=== PATIENT | female | born 1960 | race Caucasian/White ===

== ENCOUNTER 2017-04-25 23:39 | Observation (INO) | payer BC ==
--- NOTE | 2017-04-26 00:30 | EDM.PDOC ---
ED HPI GENERAL MEDICAL PROBLEM - General Chief Complaint: General Stated Complaint: LOW BLOOD SUGAR Time Seen by Provider: 04/26/17 00:15 - History of Present Illness INITIAL COMMENTS - FREE TEXT/NARRATIVE: HISTORY AND PHYSICAL: History of present illness: Patient 56-year-old white female history of diabetes presents with concern of generalized weakness with nausea on arrival here patient states she feels somewhat better but is noted have intermittent bigeminy without associated chest pain shortness of breath or nausea or vomiting. Review of systems: As per history of present illness and below otherwise all systems reviewed and negative. Past medical history: As per history of present illness and as reviewed below otherwise noncontributory. Surgical history: As per history of present illness and as reviewed below otherwise noncontributory. Social history: No reported history of drug or alcohol abuse. Family history: As per history of present illness and as reviewed below otherwise noncontributory. Physical exam: HEENT: Atraumatic, normocephalic, pupils reactive, negative for conjunctival pallor or scleral icterus, mucous membranes moist, throat clear, neck supple, nontender, trachea midline. Lungs: Clear to auscultation, breath sounds equal bilaterally, chest nontender. Heart: S1S2, irregular, negative for clicks, rubs, or JVD. Abdomen: Soft, nondistended, nontender. Negative for masses or hepatosplenomegaly. Negative for costovertebral tenderness. Pelvis: Stable nontender. Genitourinary: Deferred. Rectal: Deferred. Extremities: Atraumatic, negative for cords or calf pain. Neurovascular unremarkable. Neuro: Awake, alert, oriented. Cranial nerves II through XII unremarkable. Cerebellum unremarkable. Motor and sensory unremarkable throughout. Exam nonfocal. Diagnostics: CBC CMP PT/INR troponin chest x-ray EKG Therapeutics: IV O2 monitor Impression: #1 intermittent bigeminy #2 diabetes #3 loss weakness with associated Definitive disposition and diagnosis as appropriate pending reevaluation and review of above. - Related Data Allergies Allergy/AdvReac Type Severity Reaction Status Date / Time Sulfa (Sulfonamide Allergy Difficulty Verified 04/25/17 23:44 Antibiotics) Breathing Home Meds: Home Meds Aspirin 81 mg PO DAILY 04/25/17 [History] Dulaglutide [Trulicity] 0.75 mg SQ ASDIRECTED 04/25/17 [History] Telmisartan [Micardis] 40 mg PO DAILY 04/25/17 [History] metFORMIN HCl [Metformin HCl] 1,000 mg PO BID 04/25/17 [History] ED ROS GENERAL - Review of Systems Review Of Systems: ROS reveals no pertinent complaints other than HPI. ED EXAM, GENERAL - Physical Exam Exam: See Below (See dictation) Course - Vital Signs Last Recorded V/S: Last Vital Signs Temp 36.6 C 04/25/17 23:39 Pulse 112 H 04/25/17 23:39 Resp 18 04/25/17 23:39 BP 120/78 04/25/17 23:39 Pulse Ox 100 04/25/17 23:39 - Orders/Labs/Meds Orders: Active Orders 24 hr Category Date Time Status Cardiac Monitoring [RC] . DIRECTED Care 04/25/17 23:43 Active Chest 1V Frontal [CR] Stat Exams 04/25/17 23:43 Taken COMPREHENSIVE METABOLIC PN,CMP [CHEM] Stat Lab 04/25/17 23:53 Received TROPONIN I [CHEM] Stat Lab 04/25/17 23:53 Received Labs: Laboratory Tests 04/25/17 04/25/17 Range/Units 23:53 23:53 WBC 13.76 H (4.0-11.0) K/uL RBC 5.19 (4.30-5.90) M/uL Hgb 15.4 (12.0-16.0) g/dL Hct 46.6 H (36.0-46.0) % MCV 89.8 (80.0-98.0) fL MCH 29.7 (27.0-32.0) pg MCHC 33.0 (31.0-37.0) g/dL RDW Std Deviation 47.0 (28.0-62.0) fl RDW Coeff of Anuja 15 (11.0-15.0) % Plt Count 312 (150-400) K/uL MPV 10.60 (7.40-12.00) fL Neut % (Auto) 76.9 (48.0-80.0) % Lymph % (Auto) 17.2 (16.0-40.0) % Sterling % (Auto) 4.9 (0.0-15.0) % Eos % (Auto) 0.7 (0.0-7.0) % Baso % (Auto) 0.3 (0.0-1.5) % Neut # (Auto) 10.6 H (1.4-5.7) K/uL Lymph # (Auto) 2.4 (0.6-2.4) K/uL Sterling # (Auto) 0.7 (0.0-0.8) K/uL Eos # (Auto) 0.1 (0.0-0.7) K/uL Baso # (Auto) 0.0 (0.0-0.1) K/uL Nucleated RBC % 0.0 /100WBC Nucleated RBCs # 0 K/uL D-Dimer, Quantitative 0.28 (0.0-0.52) mg/LFEU Departure - Departure Time of Disposition: 00:29 Disposition: Refer to Observation Preliminary Cause of *Q: Sepsis & Multi System Organ Failure Clinical Impression: Bigeminy, Weakness, Diabetes - Discharge Information Referrals: PCP,None [Primary Care Provider] - - My Orders Last 24 Hours: My Active Orders 04/25/17 23:43 Cardiac Monitoring [RC] . DIRECTED Chest 1V Frontal [CR] Stat 04/25/17 23:53 COMPREHENSIVE METABOLIC PN,CMP [CHEM] Stat TROPONIN I [CHEM] Stat - Assessment/Plan Last 24 Hours: My Active Orders 04/25/17 23:43 Cardiac Monitoring [RC] . DIRECTED Chest 1V Frontal [CR] Stat 04/25/17 23:53 COMPREHENSIVE METABOLIC PN,CMP [CHEM] Stat TROPONIN I [CHEM] Stat
[2017-04-26 00:45] LABS: CHLORIDE,CL 104 mmol/L (98-110); SODIUM,NA 139 mmol/L (136-146)
[2017-04-26] MEDS ORDERED: Aspirin 81 MG Tab.Chew PO ONE (01:02)
[2017-04-26] MEDS ORDERED: Aspirin 81 MG Tab.Chew ONE (01:02)
[2017-04-26] MEDS ORDERED: Ondansetron 4 MG/2 ML SDV IVPUSH PRN (01:55)
[2017-04-26] MEDS ORDERED: Insulin Aspart 100 Units/ML 3 ML Pen SUBCUT SCH (07:30)
[2017-04-26] MEDS ORDERED: Sodium Chloride 0.9% 1,000 ML IV ONE (07:49)
[2017-04-26] MEDS ORDERED: Heparin Sod,Pork In 0.45% Nacl 25,000 UNIT/500 ML IV.SOLN IV SCH (08:00)
[2017-04-26] MEDS ORDERED: Metoprolol Tartrate 25 MG Tab PO ONE (08:21)
[2017-04-26] MEDS ORDERED: Clopidogrel 75 MG Tab PO ONE (08:21)
[2017-04-26] MEDS ORDERED: Heparin Sodium 5,000 Units/ML Vial IVPUSH ONE (08:29)
--- NOTE | 2017-04-26 08:47 | PCM.HP ---
H&P History of Present Illness - General Date of Service: 04/26/17 Admit Problem/Dx: Admission Diagnosis/Problem Admission Diagnosis/Problem Weakness - History of Present Illness Initial Comments - Free Text/Narative: This is a 56yo Female with a past medical history significant for HTN, T2DM, HLD , obesity that presented to the emergency department via ambulance with a chief complaint of nausea, vomiting, lightheadedness. Patient stated that around 10pm last night, she began to experience these symptoms suddenly. She also began to experience vague centralized, nonradiating mild chest pain which she attributed to eating a frozen burrito just prior. She believed this was just indigestion. However, she states that her noticed her looking sick and thought it would be a good idea to check her blood pressure. BP checked at home was apparently 50/30. An ambulance was called and thus brought into the ER for further workup. ED Course: EKG - bigeminal wave pattern, no ST elevation Trop x1: 0.32 CXR unremarkable CBC mild leukocytosis CMP unremarkable - Related Data Allergies/Adverse Reactions: Allergies Allergy/AdvReac Type Severity Reaction Status Date / Time Sulfa (Sulfonamide Allergy Difficulty Verified 04/25/17 23:44 Antibiotics) Breathing Home Medications: Home Meds Aspirin 81 mg PO DAILY 04/25/17 [History] Dulaglutide [Trulicity] 0.75 mg SQ ASDIRECTED 04/25/17 [History] Telmisartan [Micardis] 40 mg PO DAILY 04/25/17 [History] metFORMIN HCl [Metformin HCl] 1,000 mg PO BID 04/25/17 [History] Past Medical History - Past Health History Medical/Surgical History: Denies Medical/Surgical History Cardiovascular History: Reports: Hypertension 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: Reports: Endometriosis, Psychiatric History: Reports: Depression Endocrine/Metabolic History: Reports: Diabetes, Type II Dermatologic History: Reports: Other (See Below) Other Dermatologic History: seasonal allergies - Infectious Disease History Infectious Disease History: Reports: Chicken Pox - Past Surgical History Female Surgical History: Reports: Section, Hysterectomy Social & Family History - Family History Family Medical History: Noncontributory - Tobacco Use Smoking Status *Q: Never Smoker Second Hand Smoke Exposure: No - Caffeine Use Caffeine Use: Reports: Soda - Recreational Drug Use Recreational Drug Use: No H&P Review of Systems - Review of Systems: Review Of Systems: See Below General: Reports: Chills, Fatigue Pulmonary: Reports: Other Cardiovascular: Reports: Chest Pain, Lightheadedness Gastrointestinal: Reports: No Symptoms Genitourinary: Reports: No Symptoms Musculoskeletal: Reports: No Symptoms Skin: Reports: No Symptoms Psychiatric: Reports: No Symptoms Neurological: Denies: Numbness, Paresthesia, Syncope, Tremors, Trouble Speaking Hematologic/Lymphatic: Reports: No Symptoms Immunologic: Reports: No Symptoms Exam - Exam Exam: See Below - Vital Signs Vital Signs: Last Vital Signs Temp 36.6 C 04/26/17 08:00 Pulse 75 04/26/17 08:00 Resp 16 04/26/17 08:00 BP 115/70 04/26/17 08:00 Pulse Ox 95 04/26/17 08:00 Weight: 91.5 kg - Exam Quality Assessment: Supplemental Oxygen General: Alert, Oriented HEENT: Conjunctiva Clear Neck: Supple, Trachea Midline Lungs: Clear to Auscultation, Normal Respiratory Effort Cardiovascular: Regular Rate, Regular Rhythm GI/Abdominal Exam: Normal Bowel Sounds, Soft, Non-Tender Back Exam: Normal Inspection, Full Range of Motion. No: CVA Tenderness (L), CVA Tenderness (R) Extremities: Normal Inspection, Normal Range of Motion, Non-Tender, No Pedal Edema, Normal Capillary Refill Peripheral Pulses: 2+: Posterior Tibial (L), Posterior Tibial (R) Skin: Warm Neurological: Cranial Nerves Intact, Babinski Absent Neuro Extensive - Mental Status: Alert Neuro Extensive - Motor, Sensory, Reflexes: CN II-XII Intact Psychiatric: Alert, Normal Affect, Normal Mood - Patient Data Lab Results Last 24 hrs: Laboratory Results - last 24 hr 04/26/17 04/26/17 04/26/17 Range/Units 01:42 05:53 05:53 POC Glucose 144 H (60-110) mg/dL Magnesium 1.8 (1.5-2.3) mEq/L Troponin I 0.60 H* (0.0-0.29) NG/ML 04/26/17 Range/Units 06:15 POC Glucose 129 H (60-110) mg/dL Magnesium (1.5-2.3) mEq/L Troponin I (0.0-0.29) NG/ML Result Diagrams: 04/25/17 23:53 04/25/17 23:53 *Q Meaningful Use (ADM) - VTE *Q VTE Criteria *Q: - Stroke *Q Stroke Criteria *Q: - AMI *Q AMI Criteria *Q: Problem List Initiated/Reviewed/Updated: Yes Orders Last 24hrs: Active Orders 24 hr Category Date Time Status Blood Glucose Check, Bedside [RC] TIDAC Care 04/26/17 07:30 Active EKG Documentation Completion [RC] ROUTINE Care 04/26/17 07:17 Active Telemetry Monitoring [Cardiac Monitoring] [RC] . Care 04/26/17 02:00 Active DIRECTED [employer] Diet [DIET] Diet 04/26/17 Breakfast Active INR,PT,PROTHROMBIN TIME [COAG] Routine Lab 04/26/17 07:48 Ordered TROPONIN I [CHEM] Routine Lab 04/26/17 11:53 Ordered Aspirin Med 04/26/17 09:00 Active 81 mg PO DAILY Heparin Sod,Pork In 0.45% Nacl [Heparin-1/2Ns 25,000 Med 04/26/17 08:00 Active Units/500] 25,000 unit in 500 ml IV TITRATE Insulin Aspart [NovoLOG] Med 04/26/17 07:30 Active See Protocol SUBCUT TIDAC Ondansetron [Zofran] Med 04/26/17 01:55 Active 4 mg IVPUSH Q3H PRN Sodium Chloride 0.9% [Normal Saline] 1,000 ml Med 04/26/17 07:49 Active IV .Bolus Medication Orders Aspirin (Aspirin) 81 mg PO DAILY STEFAN Heparin Sod,Pork In 0.45% Nacl (Heparin-1/2ns 25,000 Units/500) 25,000 unit in 500 mls @ 109.8 mls/hr IV TITRATE STEFAN; 60 UNITS/KG/HR PRN Reason: Protocol Sodium Chloride (Normal Saline) 1,000 mls @ 1,000 mls/hr IV .Bolus ONE Stop: 04/26/17 08:48 Last Admin: 04/26/17 08:30 Dose: 1,000 mls/hr Insulin Aspart (Novolog) 0 unit SUBCUT TIDAC STEFAN PRN Reason: Protocol Last Admin: 04/26/17 07:49 Dose: Not Given Ondansetron HCl (Zofran) 4 mg IVPUSH Q3H PRN PRN Reason: Nausea/Vomiting Assessment/Plan Comment:: Assessment: #1. NSTEMI #2. Nausea, vomiting #3. Chest pain secondary to #1 #4. History of HTN, T2DM, HLD #5. Mild leukocytosis Plan: #1. Admit to floor for observation. Full code. #2. Trend troponin x3 q6h #3. Telemetry #4. Cardiology consult This is a discharge summary in the same document as the H&P Admission date: April 26, 2017 Transfer date: April 26, 2017 Admission Dx: #1. NSTEMI #2. Nausea, vomiting #3. Chest pain secondary to #1 #4. History of HTN, T2DM, HLD Discharge Dx: #1. NSTEMI #2. Nausea, vomiting #3. Chest pain secondary to #1 #4. History of HTN, T2DM, HLD Hosptial course: As stated above, patient was admitted for observation and ACS rule out. Upon recheck of troponin, second set was elevated 0.6. Cardiology was consulted here who recommended that the patient be transferred to [facility] for further cardiac workup. She was placed on 600mg PO Plavix x1 , along with Heparin IV drip. Talking to the patient, she appeared to be in no acute distress at the time of transfer. The case was discussed with Dr. Marroquin, MICKI in [facility] who will be the accepting physician. He will be notifying the audiometrist educational aid at their hospital. Patient agreed to the plan.
[2017-04-26] MEDS ORDERED: Aspirin 81 MG Tab.Chew PO SCH (09:00)
--- NOTE | 2017-04-26 09:17 | CR ---
EXAM DATE: 04/26/17 PATIENT'S AGE: 56 Patient: LISA GARRETT Facility: [place], [place] Site . Site : 1960 Study: XRay Chest [id number] 12:00:48 AM Ordering Physician: Doctor Braswell Final Report: Indication: Dizziness Technique: Chest 1 view Comparison: : None Findings/Impression: The cardiac size within normal limits for technique. Lungs and pleural spaces are clear. No evidence for pulmonary edema. Osseous structures intact. Dictated by Asfaneh Greenwood MD @ Apr 26 2017 12:07AM (Electronic Signature) Report Signed by Proxy. SERGEY
--- NOTE | 2017-04-26 16:20 | CONS ---
DATE OF CONSULTATION: DATE OF : 1960 PRIMARY CARE PHYSICIAN: None PCP REASON FOR CONSULTATION: Troponin elevation. HISTORY OF PRESENT ILLNESS: This is a 56-year-old female with history of hypertension, dyslipidemia, diabetes, presented to the hospital since last night for nausea, vomiting, not feeling well and some short of breath. When she called 911, she was told that her blood pressure was very low in 50/30 and she was given IV fluids and then she started feeling better after IV fluids. EKG showed sinus rhythm with PVCs. I did not appreciate Q-wave or ST abnormality at that time. The 1st troponin was showing 0.32. Reportedly, she refused to be transferred at that time, however, I just got consulted in the morning due to worsening of troponin level from 0.3-0.6. She denies chest pain and also when in the ambulance checked her blood sugar, it was very low in the 83. She denied history of a stress test or having a chest pain. She is very active at home and sometime she feels extra heartbeat but not very often. PAST MEDICAL HISTORY: Hypertension, hyperlipidemia, diabetes. SOCIAL HISTORY: She denies smoking, alcohol use, drug use. FAMILY HISTORY: Mother had a history of hypertension. ALLERGIES: Sulfa. REVIEW OF SYSTEMS: Nausea, vomiting and feeling unwell, otherwise denies chest pain, shortness of breath, heart raising, passing out. MEDICATIONS: Home medication including Trulicity subcutaneous and also Micardis 40 mg once a day, aspirin 81 mg once a day, metformin 1000 mg b.i.d. PHYSICAL EXAMINATION: VITAL SIGNS: Initial blood pressure was 120/78 and current blood pressure is 115/70, heart rate of initial 112 and current blood pressure is 75, and O2 saturation is 95 on room air. Temperature 36.6. Weight is 91.5. HEENT: Not pallor. No jaundice. I did not appreciate JVD. HEART: Normal S1, S2. No murmur. LUNGS: Clear. ABDOMEN: Soft, nontender. Bowel sounds are present. No hepatosplenomegaly. EXTREMITIES: Legs, no edema. She denies chest pain. LABORATORY DATA: CBC showed WBC of 13, hematocrit of 46, hemoglobin of 15, platelet is 312. D- dimer is negative. INR is 1.01. Sodium 139, potassium 5.1, chloride 104, bicarb 22, BUN 12, creatinine 1.2, glucose 229. Troponin was 0.32, coming up to 0.6 and initial EKG on April 25, 2017, shows sinus rhythm with PVCs and the 2nd EKG on April 26 shows sinus rhythm with bigeminy PVCs. I did not appreciate dynamic ST changes. However there was a small R-wave in V1, V2, and this seemed to be unchanged. ASSESSMENT AND PLAN: This is a 56-year-old female with history of hypertension, diabetes, and hyperlipidemia presented to hospital with nausea, vomiting, elevation of troponins and rising troponin, most likely non-STEMI, her symptom of only nausea and vomiting. When I talked to her in the morning, she denied symptoms of nausea and vomiting is all gone and also she denied the symptom of chest pain as well. I think she would need to be transferred urgently for coronary angiogram in the tertiary care center. I will start her on for ACS protocol including heparin IV drip with bolus and Plavix loading and aspirin 81 mg once a day. She is not in heart failure on my exam. I will start her on a low dose of metoprolol 12.5 mg p.o. 1 time prior to leaving to the tertiary care hospital and further management will be depending upon the coronary angiogram result. LAYTON / XAVIER /[id number]
== END 2017-04-26 09:40 ==
LOC: MW.ED 23:39 → MW.MS 04-26 01:03
PROVIDERS: ADMIT Internal Medicine; ATTEND Internal Medicine
DX: I21.4 Non-ST elevation (NSTEMI) myocardial infarction (principal); I10 Essential (primary) hypertension; E78.5 Hyperlipidemia, unspecified; E11.9 Type 2 diabetes mellitus without complications; E66.9 Obesity, unspecified; F32.9 Major depressive disorder, single episode, unspecified; J30.2 Other seasonal allergic rhinitis; R11.2 Nausea with vomiting, unspecified; Z88.2 Allergy status to sulfonamides; Z79.82 Long term (current) use of aspirin; Z79.899 Other long term (current) drug therapy; Z79.84 Long term (current) use of oral hypoglycemic drugs
CPT/HCPCS: 36415; 71045; 80053; 82962; 83735; 84484; 85025; 85379; 85610; 93005; 96365; 96372; 99285; A9270; G0378; J1644; J7040; 99283

== ENCOUNTER 2020-10-17 14:01 | Emergency (ER) | payer BC ==
--- NOTE | 2020-10-17 14:18 | EDM.PDOC ---
ED HPI GENERAL MEDICAL PROBLEM - General Stated Complaint: RASH ON LEFT FOOT Time Seen by Provider: 10/17/20 14:01 Source of Information: Reports: Patient History Limitations: Reports: No Limitations - History of Present Illness INITIAL COMMENTS - FREE TEXT/NARRATIVE: 60-year-old female past medical history diabetes presents for rash on left foot. Patient was talking to a telehealth physician today who recommended that she be seen for possible cellulitis given her history of diabetes. She first noted 2 days ago and notes that it seems to be spreading up the distal end of her leg. She denies fevers, chills, body aches, N/V, or any other symptoms. The rash isn't particularly painful. No easy bleeding, no changes in urination. - Related Data Allergies Allergy/AdvReac Type Severity Reaction Status Date / Time Sulfa (Sulfonamide Allergy Difficulty Verified 10/17/20 14:14 Antibiotics) Breathing Home Meds: Home Meds Aspirin 81 mg PO DAILY 04/25/17 [History] Dulaglutide [Trulicity] 0.75 mg SQ ASDIRECTED 04/25/17 [History] Telmisartan [Micardis] 40 mg PO DAILY 04/25/17 [History] metFORMIN HCl [Metformin HCl] 1,000 mg PO BID 04/25/17 [History] Amoxicillin/Potassium Clav [Augmentin 875-125 Tablet] 1 each PO BID 10 Days #20 tablet 10/17/20 [Rx] Past Medical History - Past Health History Medical/Surgical History: Denies Medical/Surgical History Cardiovascular History: Reports: Hypertension 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: Reports: Endometriosis, Psychiatric History: Reports: Depression Endocrine/Metabolic History: Reports: Diabetes, Type II Dermatologic History: Reports: Other (See Below) Other Dermatologic History: seasonal allergies - Infectious Disease History Infectious Disease History: Reports: Chicken Pox - Past Surgical History Female Surgical History: Reports: Section, Hysterectomy Social & Family History - Family History Family Medical History: No Pertinent Family History - Caffeine Use Caffeine Use: Reports: Soda ED ROS GENERAL - Review of Systems Review Of Systems: Comprehensive ROS is negative, except as noted in HPI. ED EXAM, GENERAL - Physical Exam Exam: See Below Exam Limited By: No Limitations General Appearance: Alert, WD/WN, No Apparent Distress Ears: Hearing Grossly Normal Throat/Mouth: Normal Voice, No Airway Compromise Head: Atraumatic, Normocephalic Neck: Normal Inspection Respiratory/Chest: No Respiratory Distress, No Accessory Muscle Use Cardiovascular: Normal Peripheral Pulses Extremities: Normal Inspection Neurological: Alert Psychiatric: Normal Affect, Normal Mood Skin Exam: Warm, Dry, Intact, Normal Color, Other (erythema without warmth or TTP or swelling to L medial foot up to ankle) Course - Vital Signs Last Recorded V/S: Last Vital Signs Temp 96.3 F L 10/17/20 14:15 Pulse 87 10/17/20 14:15 Resp 18 10/17/20 14:15 BP 152/93 H 10/17/20 14:15 Pulse Ox 98 10/17/20 14:15 - Re-Assessments/Exams Free Text/Narrative Re-Assessment/Exam: 10/17/20 14:31 Will tx for possible cellulitis; return precautions discussed Departure - Departure Time of Disposition: 14:28 Disposition: Home, Self-Care 01 Condition: Good Clinical Impression: Rash of foot - Discharge Information Prescriptions: Amoxicillin/Potassium Clav [Augmentin 875-125 Tablet] 1 each PO BID 10 Days #20 tablet Instructions: Diabetes Mellitus and Foot Care Additional Instructions: I have sent a prescription for Augmentin to pharmacy. Please follow-up with your primary care physician. The following information is given to patients seen in the emergency department who are being discharged to home. This information is to outline your options for follow-up care. We provide all patients seen in our emergency department with a follow-up referral. The need for follow-up, as well as the timing and circumstances, are variable depending upon the specifics of your emergency department visit. If you don't have a primary care physician on staff, we will provide you with a referral. We always advise you to contact your personal physician following an emergency department visit to inform them of the circumstance of the visit and for follow-up with them and/or the need for any referrals to a consulting specialist. The emergency department will also refer you to a specialist when appropriate. This referral assures that you have the opportunity for follow-up care with a specialist. All of these measure are taken in an effort to provide you with optimal care, which includes your follow-up. Under all circumstances we always encourage you to contact your private physician who remains a resource for coordinating your care. When calling for follow-up care, please make the office aware that this follow-up is from your recent emergency room visit. If for any reason you are refused follow-up, please contact the [facility] Emergency Department at and asked to speak to the emergency department charge nurse. Please follow up with your primary care physician. If you do not have a primary care physician, see below: [facility] [address] [place] [address] [phone] [facility] [address] [place] [address] [facility] [address] [place] [address] Sepsis Event Note (ED) - Focused Exam Vital Signs: Vital Signs Temp Pulse Resp BP Pulse Ox 10/17/20 14:15 96.3 F L 87 18 152/93 H 98
== END 2020-10-17 14:35 | disposition home or self-care (01) ==
LOC: MW.ED 14:01
DX: R21 Rash and other nonspecific skin eruption (principal); I10 Essential (primary) hypertension; E11.9 Type 2 diabetes mellitus without complications; Z88.2 Allergy status to sulfonamides; Z79.82 Long term (current) use of aspirin; Z79.84 Long term (current) use of oral hypoglycemic drugs
CPT/HCPCS: 99282